=== PATIENT | female | born 1955 | race Caucasian/White ===

== ENCOUNTER 2022-03-21 09:00 | Outpatient (RCR) | payer MEDICARE | END 2022-03-23 | LOC: PT 09:00 | PROVIDERS: ATTEND Specialist | DX: M75.42 Impingement syndrome of left shoulder (principal) ==

== ENCOUNTER 2022-04-10 15:58 | Outpatient (RCR) | payer MEDICARE | END 2022-04-23 | LOC: PT 15:58 | PROVIDERS: ATTEND Specialist | DX: M75.42 Impingement syndrome of left shoulder (principal) ==